=== PATIENT | male | born 1980 | race Caucasian/White ===

== ENCOUNTER 2017-01-04 10:27 | Emergency (ER) | payer OTHER ==
[~2017-01-04] VITALS: Ht 185.4 cm; Wt 125.3 kg
[~2017-01-04 10:27] MED LIST: ALBU1AER9 INH; CYCL10TA6 PO; DRGTP12; FELO5TAB PO; HYDR-3714 PO; LISI-788 PO; OMEP20CA9 PO; PRZ/40 PO
[2017-01-04 10:28] VITALS: TEMP 36.5; Ht 185.4 cm; Wt 125.3 kg
[2017-01-04] MEDS ORDERED: FENTANYL CITRATE INJ 50 MCG/1 ML 2 ML VIAL IV STA ×2 (10:45→11:59)
[2017-01-04] MEDS ORDERED: ONDANSETRON INJ 2 MG/ML 2 ML VIAL IV STA (10:45)
[2017-01-04 11:10] LABS: BASO % 0.5 %; BASO ABS # 0.06 K/uL (0-0.2); COMPLETE YES; EOS % 1.6 %; HEMATOCRIT 49.5 % (42-52); IG% 0.6 %; LYMPH % 18.8 %; LYMPH ABS # 2.44 K/uL (1.2-3.4); MEAN CELL VOLUME 89.5 fL (80-100); MEAN CORPUSCULAR HEMOGLOBIN 31.8 pg (25-34); MEAN CORPUSCULAR HGB CONC 35.6 g/dl (32-36); MEAN PLATELET VOLUME 10.8 fL (7.4-10.4); MONO % 6.2 %; NEUT % 72.3 %; PLATELET COUNT 211 K/uL (130-400); RED BLOOD COUNT 5.53 M/uL (4.7-6.1); WHITE BLOOD COUNT 12.98 K/uL (4.8-10.8)
[2017-01-04 11:24] LABS: BUN/CREATININE RATIO 14.3 (10-20); CALCIUM 9.4 mg/dl (8.5-10.1); CREATININE 0.9 mg/dl (0.60-1.40); POTASSIUM 3.7 mmol/L (3.5-5.1)
--- NOTE | 2017-01-04 11:29 | DIAGNOSTIC IMAGING REPORT ---
CT SCAN OF THE BRAIN WITHOUT IV CONTRAST CLINICAL HISTORY: Headache. Vomiting. Blurry vision. COMPARISON STUDY: CT of the brain dated 01/20/2015. TECHNIQUE: Unenhanced axial CT scan of the brain is performed from the vertex to the skull base. Automated dose control exposure was utilized. CT DOSE: 614.27 mGy.cm FINDINGS: Brain parenchyma: A posterior fossa shunt catheter is unchanged in position. The brain parenchyma is normal in appearance. There is no hemorrhage, mass effect, or evidence of acute territorial ischemia by CT criteria. Reyez-white matter is preserved. No extra-axial fluid collection is seen. Ventricles, sulci, cisterns: Normal in configuration. Intracranial vasculature: The visualized intracranial vasculature at the skull base is normal in appearance. Calvarium: There is evidence of suboccipital craniectomy. A high right parietal amber hole is noted. No destructive calvarial lesion is seen. Sinuses and mastoids: The visualized paranasal sinuses are clear. The mastoid air cells are well pneumatized. Orbits: The bony orbits are grossly intact. IMPRESSION: 1. There is no hemorrhage, mass effect, or evidence of acute territorial ischemia by CT criteria. 2. A posterior fossa shunt catheter is unchanged in position. Ventricular caliber is normal and unchanged. Electronically signed by: Robbin Hennessy M.D. 01/04/2017 11:27 AM Dictated Date/Time: 01/04/2017 11:24 AM
--- NOTE | 2017-01-04 11:55 | DIAGNOSTIC IMAGING REPORT ---
ABDOMEN 2 VIEWS CLINICAL HISTORY: Assess shunt catheter. FINDINGS: Supine and decubitus abdominal radiographs are compared to study dated 12/13/2015. There is a nonobstructed abdominal bowel gas pattern. A ventriculoperitoneal shunt catheter is unchanged in position and coiled in the pelvis from a right-sided approach. The catheter appears intact. Moderate colonic fecal retention is observed. No evidence of intraperitoneal free air is seen. A 1.3 cm nonobstructing right renal calculus is similar to previous. The lumbosacral spine and bony pelvis appear intact. IMPRESSION: 1. Nonobstructed abdominal bowel gas pattern noting moderate constipation. 2. A ventriculoperitoneal shunt catheter is unchanged in position. Visualized portions of the catheter appear intact. 3. Nonobstructing right renal calculus. Electronically signed by: Robbin Hennessy M.D. 01/04/2017 11:53 AM Dictated Date/Time: 01/04/2017 11:51 AM
--- NOTE | 2017-01-04 11:56 | DIAGNOSTIC IMAGING REPORT ---
CERVICAL SPINE 2 VIEWS CLINICAL HISTORY: Ventricular shunt assessment. FINDINGS: AP and lateral views of the cervical spine are compared to study dated 12/21/2014. The cervical spine is intact as visualized. There is straightening of the cervical lordosis. Anterior osteophytes are noted. A ventricular shunt catheter in the posterior fossa is identified. The imaged portions of the catheter appear intact. The visualized apical lung parenchyma appears clear. IMPRESSION: 1. The imaged portions of the ventricular shunt catheter appear intact. 2. The cervical spine is normal as visualized. Electronically signed by: Robbin Hennessy M.D. 01/04/2017 11:55 AM Dictated Date/Time: 01/04/2017 11:53 AM
--- NOTE | 2017-01-04 11:57 | DIAGNOSTIC IMAGING REPORT ---
TWO VIEW CHEST CLINICAL HISTORY: Assessment ventriculoperitoneal shunt. FINDINGS: PA and lateral chest radiographs are compared to study dated 12/13/2015. The heart is top normal for projection. Pulmonary vascular structures noncongested. Nonspecific interstitial thickening is similar to previous. No airspace consolidation or pleural effusion is identified. There is no pneumothorax. The bony thorax appears intact. A ventriculoperitoneal shunt catheter traverses the right chest. The imaged portions of the catheter appear intact. IMPRESSION: 1. No active disease in the chest. 2. The visualized portions of the ventriculoperitoneal shunt catheter appear intact. Electronically signed by: Robbin Hennessy M.D. 01/04/2017 11:56 AM Dictated Date/Time: 01/04/2017 11:55 AM
[2017-01-04] MEDS ORDERED: LISINOPRIL/HCTZ 20/25MG TAB PO STA (11:59)
--- NOTE | 2017-01-04 12:00 | DIAGNOSTIC IMAGING REPORT ---
SKULL 2 VIEWS CLINICAL HISTORY: A ventriculoperitoneal shunt assessment. FINDINGS: AP and lateral calvarial radiographs are compared to study dated 12/21/[address] of the brain performed the same day 01/04/2017. A ventricular shunt catheter is again seen in the posterior fossa. The imaged portions of the catheter appear intact and are unchanged from 12/21/2014. A right parietal amber hole is noted. The calvarium is otherwise intact. The visual paranasal sinuses appear clear. IMPRESSION: Imaged portions of the ventricular shunt appear intact. Electronically signed by: Robbin Hennessy M.D. 01/04/2017 11:59 AM Dictated Date/Time: 01/04/2017 11:56 AM
[2017-01-04] MEDS ORDERED: PENI500T2 PO (12:27)
[2017-01-04] MEDS ORDERED: PENICILLIN V POTASSIUM 250 MG TAB PO ONE (12:30)
[2017-01-04] MEDS ORDERED: VNTHFA/IN INH (12:33)
[2017-01-04 12:39] VITALS: BP 200/132; PULSE 78; O2SAT 97
--- NOTE | 2017-01-04 13:32 | EMERGENCY ROOM VISIT NOTE ---
History Report prepared by Edenilson: Connie Orozco Under the Supervision of: Dr. Rusty Aguayo M.D. First contact with patient: 10:34 Chief Complaint: HEAD PAIN Stated Complaint: PAIN IN HEAD AND MOUTH History of Present Illness The patient is a 36 year old male who presents to the Emergency Room with complaints of worsening jaw pain beginning a few days prior to arrival. The patient states that he is experiencing pain to his left upper and lower teeth. He notes the pain has significantly worsened last night and this morning. He was seen in the ED last year for similar symptoms. 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 He states that the headache is unchanged from how it usually presents. This morning the patient took his blood pressure medication and the proceed to have an episode of vomiting. He believes he threw up his blood pressure medicine. The patient is also experiencing blurred vision in his left eye. The patient denies recent abdominal pain, fevers, chest pain, diarrhea, trouble breathing, difficulty ambulating, slurred words, numbness or weakness to one side of the body. 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 Review of Systems See HPI for pertinent positives & negatives. A total of 10 systems reviewed and were otherwise negative. Past Medical & Surgical Medical Problems: (1) Arachnoid cyst (2) ASTHMA, UNSPECIFIED (3) BIPOLAR DISORDER, UNSPECIFIED (4) Hypertension (5) Ventriculoperitoneal shunt Family History Cancer Diabetes mellitus FH: gallbladder disease FH: heart disease Hypertension Kidney disease Kidney stones Social History Smoking Status: Current Every Day Smoker Alcohol Use: occasionally Drug Use: none Marital Status: single Housing Status: lives with family Occupation Status: disabled Current/Historical Medications Scheduled Albuterol Hfa (Ventolin Hfa), 2 PUFFS INH Q6H Cyclobenzaprine Hcl (Flexeril), 10 MG PO HS Felodipine (Plendil Er), 5 MG PO DAILY Fluoxetine Hcl (Prozac), 40 MG PO DAILY Lisinopril/Hctz (Zestoretic 20MG/25MG), 1 TAB PO DAILY Omeprazole (Prilosec), 20 MG PO BID Penicillin V Potassium (Veetids), 500 MG PO TID Scheduled PRN Hydrocodon/Acetaminophen 7.5MG/300MG (Vicodin Es (7.5MG/300MG)), 1 TAB PO for Pain Allergies Coded Allergies: BEE STING (Verified Allergy, Severe, THROAT SWELLS, 01/04/17) Morphine (Verified Allergy, Unknown, ., 01/04/17) Hydromorphone (Verified Adverse Reaction, Intermediate, SEVERE HEADACHE, ) Tramadol (Verified Adverse Reaction, Intermediate, hives,throat swelling, 01/04/17) HE GETS HIVES Physical Exam Vital Signs Date Time Temp Pulse Resp B/P (MAP) Pulse Ox O2 Delivery O2 Flow Rate FiO2 01/04/17 12:39 78 20 200/132 97 01/04/17 11:50 98 20 200/143 96 Room Air 01/04/17 10:28 36.5 105 18 207/139 100 Room Air Physical Exam Constitutional: Vital signs reviewed. Eyes: Pupils are equal round reactive to light. Conjunctiva are noninjected. ENT: No facial swelling; multiple carries with percussion tenderness to left maxillary and mandibular molars with no gingival swelling. Pharynx is clear without erythema or exudate. Mucous membranes are moist. Neck supple without meningeal signs. Respiratory: Clear to auscultation bilaterally. Breath sounds are equal bilaterally. Cardiovascular: Regular rate and rhythm. No rubs or gallops. GI: Soft, nondistended and nontender. Bowel sounds are present. Musculoskeletal: No peripheral edema. No lower extremity tenderness. Integumentary: No cyanosis. Neurological: The patient is awake and alert. Cranial nerves II-XII are intact. Motor is 5 out of 5 all extremities. Sensation is intact to light touch all extremities. Normal speech. No pronator drift. Psychiatric: Normal affect. Medical Decision & Procedures ER Provider Diagnostic Interpretation: Radiology results as stated below per my review and the radiologist's interpretation: CT SCAN OF THE BRAIN WITHOUT IV CONTRAST CLINICAL HISTORY: Headache. Vomiting. Blurry vision. COMPARISON STUDY: CT of the brain dated 01/20/2015. TECHNIQUE: Unenhanced axial CT scan of the brain is performed from the vertex to the skull base. Automated dose control exposure was utilized. CT DOSE: 614.27 mGy.cm FINDINGS: Brain parenchyma: A posterior fossa shunt catheter is unchanged in position. The brain parenchyma is normal in appearance. There is no hemorrhage, mass effect, or evidence of acute territorial ischemia by CT criteria. Reyez-white matter is preserved. No extra-axial fluid collection is seen. Ventricles, sulci, cisterns: Normal in configuration. Intracranial vasculature: The visualized intracranial vasculature at the skull base is normal in appearance. Calvarium: There is evidence of suboccipital craniectomy. A high right parietal amber hole is noted. No destructive calvarial lesion is seen. Sinuses and mastoids: The visualized paranasal sinuses are clear. The mastoid air cells are well pneumatized. Orbits: The bony orbits are grossly intact. IMPRESSION: 1. There is no hemorrhage, mass effect, or evidence of acute territorial ischemia by CT criteria. 2. A posterior fossa shunt catheter is unchanged in position. Ventricular caliber is normal and unchanged. Electronically signed by: Robbin Hennessy M.D. 01/04/2017 11:27 AM Dictated Date/Time: 01/04/2017 11:24 AM TWO VIEW CHEST CLINICAL HISTORY: Assessment ventriculoperitoneal shunt. FINDINGS: PA and lateral chest radiographs are compared to study dated 12/13/2015. The heart is top normal for projection. Pulmonary vascular structures noncongested. Nonspecific interstitial thickening is similar to previous. No airspace consolidation or pleural effusion is identified. There is no pneumothorax. The bony thorax appears intact. A ventriculoperitoneal shunt catheter traverses the right chest. The imaged portions of the catheter appear intact. IMPRESSION: 1. No active disease in the chest. 2. The visualized portions of the ventriculoperitoneal shunt catheter appear intact. Electronically signed by: Robbin Hennessy M.D. 01/04/2017 11:56 AM Dictated Date/Time: 01/04/2017 11:55 AM CERVICAL SPINE 2 VIEWS CLINICAL HISTORY: Ventricular shunt assessment. FINDINGS: AP and lateral views of the cervical spine are compared to study dated 12/21/2014. The cervical spine is intact as visualized. There is straightening of the cervical lordosis. Anterior osteophytes are noted. A ventricular shunt catheter in the posterior fossa is identified. The imaged portions of the catheter appear intact. The visualized apical lung parenchyma appears clear. IMPRESSION: 1. The imaged portions of the ventricular shunt catheter appear intact. 2. The cervical spine is normal as visualized. Electronically signed by: Robbin Hennessy M.D. 01/04/2017 11:55 AM Dictated Date/Time: 01/04/2017 11:53 AM ABDOMEN 2 VIEWS CLINICAL HISTORY: Assess shunt catheter. FINDINGS: Supine and decubitus abdominal radiographs are compared to study dated 12/13/2015. There is a nonobstructed abdominal bowel gas pattern. A ventriculoperitoneal shunt catheter is unchanged in position and coiled in the pelvis from a right-sided approach. The catheter appears intact. Moderate colonic fecal retention is observed. No evidence of intraperitoneal free air is seen. A 1.3 cm nonobstructing right renal calculus is similar to previous. The lumbosacral spine and bony pelvis appear intact. IMPRESSION: 1. Nonobstructed abdominal bowel gas pattern noting moderate constipation. 2. A ventriculoperitoneal shunt catheter is unchanged in position. Visualized portions of the catheter appear intact. 3. Nonobstructing right renal calculus. Electronically signed by: Robbin Hennessy M.D. 01/04/2017 11:53 AM Dictated Date/Time: 01/04/2017 11:51 AM SKULL 2 VIEWS CLINICAL HISTORY: A ventriculoperitoneal shunt assessment. FINDINGS: AP and lateral calvarial radiographs are compared to study dated 12/21/[address] of the brain performed the same day 01/04/2017. A ventricular shunt catheter is again seen in the posterior fossa. The imaged portions of the catheter appear intact and are unchanged from 12/21/2014. A right parietal amber hole is noted. The calvarium is otherwise intact. The visual paranasal sinuses appear clear. IMPRESSION: Imaged portions of the ventricular shunt appear intact. Electronically signed by: Robbin Hennessy M.D. 01/04/2017 11:59 AM Dictated Date/Time: 01/04/2017 11:56 AM Laboratory Results 01/04/17 11:00 Red Blood Count 5.53, Mean Corpuscular Volume 89.5, Mean Corpuscular Hemoglobin 31.8, Mean Corpuscular Hemoglobin Concent 35.6, Mean Platelet Volume 10.8, Neutrophils (%) (Auto) 72.3, Lymphocytes (%) (Auto) 18.8, Monocytes (%) (Auto) 6.2, Eosinophils (%) (Auto) 1.6, Basophils (%) (Auto) 0.5, Neutrophils # (Auto) 9.39, Lymphocytes # (Auto) 2.44, Monocytes # (Auto) 0.80, Eosinophils # (Auto) 0.21, Basophils # (Auto) 0.06 01/04/17 11:00 Test 01/04/17 11:00 White Blood Count 12.98 K/uL (4.8-10.8) Red Blood Count 5.53 M/uL (4.7-6.1) Hemoglobin 17.6 g/dL (14.0-18.0) Hematocrit 49.5 % (42-52) Mean Corpuscular Volume 89.5 fL (80-100) Mean Corpuscular Hemoglobin 31.8 pg (25-34) Mean Corpuscular Hemoglobin Concent 35.6 g/dl (32-36) Platelet Count 211 K/uL (130-400) Mean Platelet Volume 10.8 fL (7.4-10.4) Neutrophils (%) (Auto) 72.3 % Lymphocytes (%) (Auto) 18.8 % Monocytes (%) (Auto) 6.2 % Eosinophils (%) (Auto) 1.6 % Basophils (%) (Auto) 0.5 % Neutrophils # (Auto) 9.39 K/uL (1.4-6.5) Lymphocytes # (Auto) 2.44 K/uL (1.2-3.4) Monocytes # (Auto) 0.80 K/uL (0.11-0.59) Eosinophils # (Auto) 0.21 K/uL (0-0.5) Basophils # (Auto) 0.06 K/uL (0-0.2) RDW Standard Deviation 43.2 fL (36.4-46.3) RDW Coefficient of Variation 13.2 % (11.5-14.5) Immature Granulocyte % (Auto) 0.6 % Immature Granulocyte # (Auto) 0.08 K/uL (0.00-0.02) Anion Gap 9.0 mmol/L (3-11) Est Creatinine Clear Calc Drug Dose 158.9 ml/min Estimated GFR () 127.8 Estimated GFR (Non- 110.3 BUN/Creatinine Ratio 14.3 (10-20) Calcium Level 9.4 mg/dl (8.5-10.1) Laboratory results as reviewed by me. Medications Administered Medications (Trade) Dose Ordered Sig/Adam Route Start Time Stop Time Status Last Admin Dose Admin Ondansetron HCl (Zofran Inj) 4 mg NOW STAT IV 01/04/17 10:45 01/04/17 10:48 DC 01/04/17 11:04 4 MG Fentanyl Citrate (Fentanyl Inj) 50 mcg NOW STAT IV 01/04/17 10:45 01/04/17 10:48 DC 01/04/17 11:04 50 MCG HCTZ/Lisinopril (Prinzide 20-25MG Tab) 1 tab ONE STAT PO 01/04/17 11:59 01/04/17 12:00 DC 01/04/17 12:12 1 TAB Fentanyl Citrate (Fentanyl Inj) 50 mcg NOW STAT IV 01/04/17 11:59 01/04/17 12:00 DC 01/04/17 12:10 50 MCG Penicillin V Potassium (Veetids Tab) 500 mg NOW ONCE PO 01/04/17 12:30 01/04/17 12:31 DC 01/04/17 12:33 500 MG ED Course 1038: The patient was evaluated in room C6. A complete history and physical exam was performed. 1045: Fentanyl Inj 50 mcg IV, Zofran Inj 4 mg IV. 1159: Fentanyl Inj 50 mcg IV, Prinzide 20-25 MG Tab 1 tab PO. 1225: I reevaluated the patient and he is feeling better, 1230: Upon reevaluation, the patient appeared to have improvement of his symptoms. I discussed tonight's findings with him. He verbalized agreement of the treatment plan. He was discharged home. Medical Decision this is a 36-year-old male who presents with dental pain and headache with vomiting. Differential diagnosis includes caries, periapical abscess, chronic headache syndrome, and cranial mass, [employer]NAGER shunt malfunction, intracranial hemorrhage. I did perform a limited focused review of portions of the patient' s old chart on the electronic medical record. The patient was seen by myself on December 13, 2015 for dental pain. He was discharged with Oxycodone and Penicillin. Medication Reconciliation: I attest that I have personally reviewed the patient' s current medication list. Blood Pressure Screening: Patient was found to have an elevated blood pressure and was referred to their primary doctor for recheck and further treatment. His blood pressure was significantly elevated but he stated that he threw up his blood pressure medicine. I did give him a dose of Zestoretic which she takes at home. I did evaluate the patient as noted above. He is presenting with dental pain for the past few days. He states this is the main reason he came here. He also notes that he has chronic headaches and that his headache today is unchanged from his prior headaches. He is neurologically intact. He does state , however, that he did throw up and had some blurring of his vision on the left eye. His visual acuity here is unremarkable and he has no visual loss. His dental pain appears to be related to poor dentition and I did recommend treatment by a dentist. He did have some mild percussion tenderness and so I did feel antibiotic treatment was indicated. IV access was established. I did treat patient with 2 doses of IV fentanyl. He was also given Zofran IV. I did order and personally review the patient's shunt series x-rays as described above. There is no evidence of acute abnormality to his shunt. I did order and review the patient's blood work as noted in the electronic medical record. White count is slightly elevated which is a nonspecific finding. I did order a CT of the head. I did review the images myself as well as the radiology report as described above. There is no acute abnormality on CT. I did reassess the patient. He is feeling much better. I did recommend he follow with his regular doctor as well as his dentist. He was given penicillin here and discharged with a prescription for penicillin. He was given return instructions as outlined below. [place] Drug Monitoring Program Search Results: patient reviewed within database Drug Monitoring Findings: The patient gets Hydrocodone regularly and was last filled December 26 for 40 tablets. 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 I confirm that the note above accurately reflects all work, treatment, procedures, and medical decision making performed by me. Departure Information Dispostion Home / Self-Care Prescriptions Penicillin V Potassium (VEETIDS) 500 Mg Tab 500 MG PO TID, #30 TAB Prov: Rusty Aguayo M.D. 01/04/17 Referrals No Doctor, Assigned (PCP) Forms HOME CARE DOCUMENTATION FORM, IMPORTANT VISIT INFORMATION, WORK / SCHOOL INSTRUCTIONS Patient Instructions Headache Pain, My [facility], Toothache - [facility] Additional Instructions You have been examined and treated today on an emergency basis only. This is not a substitute for, or an effort to provide, complete comprehensive medical care. It is impossible to recognize and treat all injuries or illnesses in a single emergency department visit. It is therefore important that you follow up closely with your physician and dentist. Call as soon as possible for an appointment. Return for worsening symptoms or if you develop fever, numbness or weakness on one side of your body, difficulties with your speech or walking, or any other concerning symptoms. Problem Qualifiers Primary Impression: Chronic headache Headache type: unspecified Intractability: not intractable Qualified Codes : R51 - Headache
== END 2017-01-04 12:42 | disposition home or self-care (01) ==
LOC: C.EDB 10:29 → C.EDC 12:42
DX: R51 Headache (principal); K08.89 Other specified disorders of teeth and supporting structures; I10 Essential (primary) hypertension; Z98.2 Presence of cerebrospinal fluid drainage device; G93.0 Cerebral cysts; F31.9 Bipolar disorder, unspecified; F17.210 Nicotine dependence, cigarettes, uncomplicated

== ENCOUNTER 2017-05-08 16:20 | Emergency (ER) | payer OTHER ==
[~2017-05-08] VITALS: Ht 185.4 cm; Wt 120.5 kg
[2017-05-08 16:20] VITALS: TEMP 36.7; Ht 185.4 cm; Wt 120.5 kg
[~2017-05-08 16:20] MED LIST changes: -ALBU1AER9 INH; -DRGTP12; +VNTHFA/IN INH
[2017-05-08] MEDS ORDERED: KETOROLAC TROMETHAMINE 30 MG/ML VIAL IV STA (16:57)
[2017-05-08] MEDS ORDERED: SODIUM CHLORIDE 0.9% 1000ML 1,000 ML IV STA (16:57)
[2017-05-08] MEDS ORDERED: MAGNESIUM SULFATE 1GM / D5W 1 GM BAG IV STA (16:57)
[2017-05-08] MEDS ORDERED: DiphenhydrAMINE HCL 50 MG/ML VIAL IV STA (16:57)
[2017-05-08] MEDS ORDERED: PROCHLORPERAZINE 5 MG/ML 2 ML VIAL IV STA (16:57)
--- NOTE | 2017-05-08 17:10 | EMERGENCY ROOM VISIT NOTE ---
History Report prepared by Edenilson: Dionne Flores Under the Supervision of: Dr. Tim Li M.D. First contact with patient: 16:52 Chief Complaint: VOMITING Stated Complaint: VOMITING, BURNING FROM HEAD TO LEGS History of Present Illness The patient is a 36 year old male who presents to the Emergency Room with complaints of persistent LLQ abdominal pain starting 2 days ago. He also complaints of nausea, vomiting, and diarrhea for the past 2 days. He also has a left sided headache. He has a history of shunt. He has had headaches like this in the past that are similar. He has not taken anything for the pain. He denies any neck pain. Source of History: patient Onset: 2 days ago Position: abdomen (LLQ) Quality: other (pain) Timing: other (persistent) Associated Symptoms: + headache, + nausea, + vomiting, + diarrhea, No neck pain Review of Systems See HPI for pertinent positives & negatives. A total of 10 systems reviewed and were otherwise negative. Past Medical & Surgical Medical Problems: (1) Arachnoid cyst (2) ASTHMA, UNSPECIFIED (3) BIPOLAR DISORDER, UNSPECIFIED (4) Hypertension (5) Ventriculoperitoneal shunt Family History Cancer Diabetes mellitus FH: gallbladder disease FH: heart disease Hypertension Kidney disease Kidney stones Social History Smoking Status: Current Every Day Smoker Alcohol Use: occasionally Drug Use: none Marital Status: single Housing Status: lives with family Occupation Status: disabled Current/Historical Medications Scheduled Albuterol Hfa (Ventolin Hfa), 2 PUFFS INH Q6H Felodipine (Plendil Er), 5 MG PO DAILY Fluoxetine Hcl (Prozac), 40 MG PO DAILY Lisinopril/Hctz (Zestoretic 20MG/25MG), 1 TAB PO DAILY Omeprazole (Prilosec), 20 MG PO BID Ondasetron Odt (Zofran Odt), 4 MG SL Q6H Scheduled PRN Hydrocodon/Acetaminophen 7.5MG/300MG (Vicodin Es (7.5MG/300MG)), 1 TAB PO for Pain Allergies Coded Allergies: BEE STING (Verified Allergy, Severe, THROAT SWELLS, 05/08/17) Morphine (Verified Allergy, Unknown, ., 05/08/17) Hydromorphone (Verified Adverse Reaction, Intermediate, SEVERE HEADACHE, 05/08/17) Tramadol (Verified Adverse Reaction, Intermediate, hives,throat swelling, 05/08/17) HE GETS HIVES Physical Exam Vital Signs Date Time Temp Pulse Resp B/P (MAP) Pulse Ox O2 Delivery O2 Flow Rate FiO2 05/08/17 20:07 102 16 203/142 98 05/08/17 19:26 101 20 210/158 97 Room Air 05/08/17 18:40 112 216/145 98 05/08/17 18:27 102 217/145 05/08/17 17:50 107 18 98 05/08/17 17:20 102 16 98 05/08/17 17:17 103 05/08/17 17:10 198/138 05/08/17 16:20 36.7 109 17 204/152 99 Room Air Physical Exam GENERAL: Patient is a healthy-appearing well-nourished male HEAD: Normocephalic atraumatic EYES: Ocular movements intact pupils equal and react to light OROPHARYNX mucous membranes are moist no exudates present no erythema or edema present NECK: Supple no nuchal rigidity CHEST: Good equal expansion LUNGS: Clear and equal to auscultation CARDIAC: Normal S1 and S2 ABDOMEN: Soft tenderness in the LLQ no guarding BACK: No CVA tenderness EXTREMITIES: No pain upon palpation normal muscle strength in all groups no clubbing cyanosis or edema NEURO: Patient is following commands and answering questions appropriately. Alert and oriented x3 Cranial Nerves 2-12 grossly intact Medical Decision & Procedures ER Provider Diagnostic Interpretation: Radiology results as stated below per my review and radiologist interpretation: CT ABD/PELVIS IV CONTRAST ONLY CLINICAL HISTORY: Left lower quadrant abdominal pain COMPARISON STUDY: 12/21/2014 TECHNIQUE: Following the IV administration of 117 mL of Optiray-320, CT scan of the abdomen and pelvis was performed from the lung bases to the proximal femurs. Images are reviewed in the axial, sagittal, and coronal planes. IV contrast was administered without complication. A dose lowering technique was utilized adhering to the principles of ALARA. CT DOSE: FINDINGS: Lower chest: There are mild dependent atelectatic changes Liver: The contrast-enhanced liver is normal in size, contour, and attenuation. There is no intrahepatic biliary ductal dilatation. The hepatic veins and portal veins are patent. Gallbladder: Cholelithiasis Spleen: Normal in size and attenuation. Pancreas: Unremarkable. Adrenal glands: Unremarkable. Kidneys: There are nonobstructing lower pole right renal calculi, the largest of which measures 1 cm. Bowel: There are no transition zones indicate bowel obstruction. There is a peritoneal catheter present. There is no acute diverticulitis. The appendix is normal. Peritoneum: There is no intraperitoneal free air or abdominal ascites. Vasculature: The abdominal aorta is normal in course and caliber. Adenopathy: None. Pelvic viscera: The bladder, and pelvic viscera are unremarkable. Skeletal structures: No destructive osseous lesions are seen. IMPRESSION: 1. Cholelithiasis 2. Nonobstructing right renal calculi 3. No ureteral or bladder calculi identified 4. No evidence of bowel obstruction. No evidence of free air 5. Normal appendix. No evidence of acute diverticulitis 6. A ventriculoperitoneal shunt catheter is visualized. The tip is positioned within the pelvis. Electronically signed by: Elbert Prater M.D. 05/08/2017 6:28 PM Dictated Date/Time: 05/08/2017 6:24 PM HEAD WITHOUT CONTRAST (CT) CLINICAL HISTORY: 36 years-old Male with Pt c/o headache, hx of shunt. Acute headache with history of shunt. TECHNIQUE: Multiple axial CT images of the head were obtained without contrast. A dose lowering technique was utilized adhering to the principles of ALARA. CT DOSE: 2562.32 mGy.cm COMPARISON: Head CT 01/04/2017. FINDINGS: No acute intracranial hemorrhage, midline shift, mass, large territorial ischemia or abnormal extra-axial collection. Posterior fossa shunt catheter is unchanged in positioning. No hydrocephalus. Increased attenuation of the vessels is compatible with recent contrast-enhanced study. The calvarium is intact with evidence of prior suboccipital craniotomy. The paranasal sinuses, mastoid air cells, and middle ear cavities are clear. IMPRESSION: 1. No acute intracranial abnormality. 2. Posterior fossa shunt catheter appears stable. No hydrocephalus. The above report was generated using voice recognition software. It may contain grammatical, syntax or spelling errors. Electronically signed by: Luis Alberto Merrill M.D. 05/08/2017 6:25 PM Dictated Date/Time: 05/08/2017 6:22 PM Laboratory Results 05/08/17 17:04 Red Blood Count 5.65, Mean Corpuscular Volume 87.3, Mean Corpuscular Hemoglobin 30.4, Mean Corpuscular Hemoglobin Concent 34.9, Mean Platelet Volume 11.0, Neutrophils (%) (Auto) 71.6, Lymphocytes (%) (Auto) 19.5, Monocytes (%) (Auto) 7.8, Eosinophils (%) (Auto) 0.4, Basophils (%) (Auto) 0.4, Neutrophils # (Auto) 9.66, Lymphocytes # (Auto) 2.63, Monocytes # (Auto) 1.05, Eosinophils # (Auto) 0.05, Basophils # (Auto) 0.05 05/08/17 17:04 Test 05/08/17 17:04 05/08/17 17:14 05/08/17 17:43 05/08/17 18:55 White Blood Count 13.48 K/uL (4.8-10.8) Red Blood Count 5.65 M/uL (4.7-6.1) Hemoglobin 17.2 g/dL (14.0-18.0) Hematocrit 49.3 % (42-52) Mean Corpuscular Volume 87.3 fL (80-100) Mean Corpuscular Hemoglobin 30.4 pg (25-34) Mean Corpuscular Hemoglobin Concent 34.9 g/dl (32-36) Platelet Count 227 K/uL (130-400) Mean Platelet Volume 11.0 fL (7.4-10.4) Neutrophils (%) (Auto) 71.6 % Lymphocytes (%) (Auto) 19.5 % Monocytes (%) (Auto) 7.8 % Eosinophils (%) (Auto) 0.4 % Basophils (%) (Auto) 0.4 % Neutrophils # (Auto) 9.66 K/uL (1.4-6.5) Lymphocytes # (Auto) 2.63 K/uL (1.2-3.4) Monocytes # (Auto) 1.05 K/uL (0.11-0.59) Eosinophils # (Auto) 0.05 K/uL (0-0.5) Basophils # (Auto) 0.05 K/uL (0-0.2) RDW Standard Deviation 41.3 fL (36.4-46.3) RDW Coefficient of Variation 13.1 % (11.5-14.5) Immature Granulocyte % (Auto) 0.3 % Immature Granulocyte # (Auto) 0.04 K/uL (0.00-0.02) Est Creatinine Clear Calc Drug Dose 149.1 ml/min Estimated GFR () 121.3 Estimated GFR (Non- 104.6 BUN/Creatinine Ratio 13.6 (10-20) Calcium Level 9.9 mg/dl (8.5-10.1) Total Bilirubin 0.7 mg/dl (0.2-1) Direct Bilirubin 0.1 mg/dl (0-0.2) Aspartate Amino Transf (AST/SGOT) 8 U/L (15-37) Alanine Aminotransferase (ALT/SGPT) 35 U/L (12-78) Alkaline Phosphatase 71 U/L (45-117) Total Protein 8.1 gm/dl (6.4-8.2) Albumin 4.2 gm/dl (3.4-5.0) Lipase 159 U/L (73-393) Bedside Lactic Acid Venous 1.27 mmol/L (0.90-1.70) Bedside Hemoglobin 17.0 g/dl (14.0-18.0) Bedside Hematocrit 50 % (42-52) Bedside Sodium 141 mEq/L (135-144) Bedside Potassium 3.3 mEq/L (3.3-5.0) Bedside Chloride 104 mEq/L (101-112) Bedside Total CO2 24 mEq/l (24-31) Anion Gap 17.0 mmol/L (16-25) Bedside Blood Urea Nitrogen 13 mg/dl (7-18) Bedside Creatinine 1.0 mg/dl (0.6-1.3) Bedside Glucose (other) 104 mg/dl (70-99) Bedside Ionized Calcium (Carlos) 1.17 mmol/l (1.12-1.32) Urine Color YELLOW Urine Appearance CLEAR (CLEAR) Urine pH 7.5 (4.5-7.5) Urine Specific [place] 1.035 (1.000-1.030) Urine Protein NEG (NEG) Urine Glucose (UA) NEG (NEG) Urine Ketones NEG (NEG) Urine Occult Blood NEG (NEG) Urine Nitrite NEG (NEG) Urine Bilirubin NEG (NEG) Urine Urobilinogen NEG (NEG) Urine Leukocyte Esterase NEG (NEG) Labs reviewed by ED physician. Medications Administered Medications (Trade) Dose Ordered Sig/Adam Route Start Time Stop Time Status Last Admin Dose Admin Sodium Chloride 1,000 ml @ 999 mls/hr Q1H1M STAT IV 05/08/17 16:57 05/08/17 17:57 DC 05/08/17 17:26 999 MLS/HR Prochlorperazine Edisylate (Compazine Inj) 10 mg NOW STAT IV 05/08/17 16:57 05/08/17 16:59 DC 05/08/17 17:26 10 MG Diphenhydramine HCl (Benadryl Inj) 50 mg NOW STAT IV 05/08/17 16:57 05/08/17 16:59 DC 05/08/17 17:26 50 MG Ketorolac Tromethamine (Toradol Inj) 30 mg NOW STAT IV 05/08/17 16:57 05/08/17 16:59 DC 05/08/17 17:26 30 MG Magnesium Sulfate (Magnesium Sulfate) 1 gm NOW STAT IV 05/08/17 16:57 05/08/17 16:59 DC 05/08/17 17:52 1 GM Potassium Chloride (Klor-Con M10) 40 meq NOW STAT PO 05/08/17 18:01 05/08/17 18:02 DC 05/08/17 18:51 40 MEQ Dexamethasone Sodium Phosphate (Decadron Inj) 10 mg NOW ONCE IV 05/08/17 19:00 05/08/17 19:01 DC 05/08/17 19:16 10 MG Valproate Sodium 500 mg/Dextrose 55 ml @ 55 mls/hr NOW STAT IV 05/08/17 18:56 05/08/17 19:55 DC 05/08/17 19:16 55 MLS/HR HCTZ/Lisinopril (Prinzide 20-25MG Tab) 1 tab NOW STAT PO 05/08/17 19:09 05/08/17 19:10 DC 05/08/17 19:09 1 TAB ED Course 1650: Past medical records reviewed. The patient was evaluated in room C5. A complete history and physical examination was performed. 1657: Magnesium Sulfate 1 gm IV, Toradol Inj 30 mg IV, Benadryl Inj 50 mg IV, Compazine Inj 10 mg IV, NSS 1000 ml @ 999 mls/hr IV. 180: Potassium Chloride 40 meq PO. 182: I reevaluated the patient. 1856: Valproate Sodium 500 mg/Dextrose 55 ml @ 55 mls/hr IV. 1900: Decadron Inj 10 mg IV. 190: Lisinopril/HCTZ 1 tab PO. 1943: Upon reexamination the patient is resting comfortably. I discussed results and treatment plan with the patient. He verbalizes agreement and understanding. The patient is ready for discharge. Medical Decision Differential diagnosis: Etiologies such as appendicitis, diverticulitis, PUD, biliary pathology, UTI, pancreatitis, obstruction, mesenteric ischemia, aortic pathology, infections, inflammatory bowel disease, renal colic, as well as others were entertained. This is a 36-year-old male who presents emergency department complaining of nausea vomiting and diarrhea. In addition the patient has a headache to the left side of his head. He has no pain in his neck and has no evidence of meningitis or encephalitis on examination. However based on the patient's complaints as well as the headache and using shared medical decision-making the patient felt he did not need a lumbar puncture or to have the shunt tapped. An IV was established, patient given normal saline bolus, Toradol, Compazine, Benadryl, magnesium. In addition the patient was also given Decadron and valproate. I will note that the patient's blood pressure is elevated he did not take his blood pressure medications today due to the vomiting. He was given Zofran here in emergency department and was able to tolerate by mouth Gatorade as well as his blood pressure medication. I stressed to the patient that he needs to get his blood pressure under control with his primary care physician. In addition I strongly recommended that the patient follow-up with Dr. Michael which his office especially if the headache returns or he develops fevers. Patient was in agreement with the treatment plan. Medication Reconcilliation Current Medication List: was personally reviewed by me Blood Pressure Screening Patient's blood pressure: Elevated blood pressure Blood pressure disposition: Referred to PCP Impression Primary Impression: Hypertension Additional Impression: Gastroenteritis Scribe Attestation The scribe's documentation has been prepared under my direction and personally reviewed by me in its entirety. I confirm that the note above accurately reflects all work, treatment, procedures, and medical decision making performed by me. Departure Information Dispostion Home / Self-Care Prescriptions Ondasetron Odt (ZOFRAN ODT) 4 Mg Tab 4 MG SL Q6H for Nausea, #6 TAB Prov: Tim Li MD 05/08/17 Referrals Jericho Ridley M.D. (PCP) Omer Somers M.D. Forms HOME CARE DOCUMENTATION FORM, IMPORTANT VISIT INFORMATION Patient Instructions ED Gastroenteritis Report Pend, Hypertension Dc, My [facility] Additional Instructions Follow up with Dr Abdi's office You were found to have an elevated blood pressure today (>120 sytolic or >90 diastolic). Per medicare guidelines, you need to follow up with this blood pressure screening with your Primary Care Physician (PCP). For a new PCP call [phone]. You have been examined and treated today on an emergency basis only. This is not a substitute for, or an effort to provide, complete comprehensive medical care. It is impossible to recognize and treat all injuries or illnesses in a single emergency department visit. It is therefore important that you follow up closely with Dr Ridley. Call as soon as possible for an appointment. Thank you for your time and consideration. I look forward to speaking with you again soon. Please don't hesitate to call us if you have any questions. Problem Qualifiers Primary Impression: Hypertension Hypertension type: unspecified Qualified Codes: I10 - Essential (primary) hypertension
[2017-05-08 17:19] LABS: BASO % 0.4 %; BASO ABS # 0.05 K/uL (0-0.2); COMPLETE YES; EOS % 0.4 %; HEMATOCRIT 49.3 % (42-52); IG% 0.3 %; LYMPH % 19.5 %; LYMPH ABS # 2.63 K/uL (1.2-3.4); MEAN CELL VOLUME 87.3 fL (80-100); MEAN CORPUSCULAR HEMOGLOBIN 30.4 pg (25-34); MEAN CORPUSCULAR HGB CONC 34.9 g/dl (32-36); MONO % 7.8 %; NEUT % 71.6 %; PLATELET COUNT 227 K/uL (130-400); RED BLOOD COUNT 5.65 M/uL (4.7-6.1); WHITE BLOOD COUNT 13.48 K/uL (4.8-10.8)
[2017-05-08 17:45] LABS: BUN/CREATININE RATIO 13.6 (10-20); CALCIUM 9.9 mg/dl (8.5-10.1); CREATININE 0.94 mg/dl (0.60-1.40); POTASSIUM 3.2 mmol/L (3.5-5.1)
[2017-05-08] MEDS ORDERED: POTASSIUM CHLORIDE 10 MEQ TABCR PO STA (18:01)
--- NOTE | 2017-05-08 18:26 | DIAGNOSTIC IMAGING REPORT ---
HEAD WITHOUT CONTRAST (CT) CLINICAL HISTORY: 36 years-old Male with Pt c/o headache, hx of shunt. Acute headache with history of shunt. TECHNIQUE: Multiple axial CT images of the head were obtained without contrast. A dose lowering technique was utilized adhering to the principles of ALARA. CT DOSE: 2562.32 mGy.cm COMPARISON: Head CT 01/04/2017. FINDINGS: No acute intracranial hemorrhage, midline shift, mass, large territorial ischemia or abnormal extra-axial collection. Posterior fossa shunt catheter is unchanged in positioning. No hydrocephalus. Increased attenuation of the vessels is compatible with recent contrast-enhanced study. The calvarium is intact with evidence of prior suboccipital craniotomy. The paranasal sinuses, mastoid air cells, and middle ear cavities are clear. IMPRESSION: 1. No acute intracranial abnormality. 2. Posterior fossa shunt catheter appears stable. No hydrocephalus. The above report was generated using voice recognition software. It may contain grammatical, syntax or spelling errors. Electronically signed by: Luis Alberto Merrill M.D. 05/08/2017 6:25 PM Dictated Date/Time: 05/08/2017 6:22 PM
--- NOTE | 2017-05-08 18:29 | DIAGNOSTIC IMAGING REPORT ---
CT ABD/PELVIS IV CONTRAST ONLY CLINICAL HISTORY: Left lower quadrant abdominal pain COMPARISON STUDY: 12/21/2014 TECHNIQUE: Following the IV administration of 117 mL of Optiray-320, CT scan of the abdomen and pelvis was performed from the lung bases to the proximal femurs. Images are reviewed in the axial, sagittal, and coronal planes. IV contrast was administered without complication. A dose lowering technique was utilized adhering to the principles of ALARA. CT DOSE: FINDINGS: Lower chest: There are mild dependent atelectatic changes Liver: The contrast-enhanced liver is normal in size, contour, and attenuation. There is no intrahepatic biliary ductal dilatation. The hepatic veins and portal veins are patent. Gallbladder: Cholelithiasis Spleen: Normal in size and attenuation. Pancreas: Unremarkable. Adrenal glands: Unremarkable. Kidneys: There are nonobstructing lower pole right renal calculi, the largest of which measures 1 cm. Bowel: There are no transition zones indicate bowel obstruction. There is a peritoneal catheter present. There is no acute diverticulitis. The appendix is normal. Peritoneum: There is no intraperitoneal free air or abdominal ascites. Vasculature: The abdominal aorta is normal in course and caliber. Adenopathy: None. Pelvic viscera: The bladder, and pelvic viscera are unremarkable. Skeletal structures: No destructive osseous lesions are seen. IMPRESSION: 1. Cholelithiasis 2. Nonobstructing right renal calculi 3. No ureteral or bladder calculi identified 4. No evidence of bowel obstruction. No evidence of free air 5. Normal appendix. No evidence of acute diverticulitis 6. A ventriculoperitoneal shunt catheter is visualized. The tip is positioned within the pelvis. Electronically signed by: Elbert Prater M.D. 05/08/2017 6:28 PM Dictated Date/Time: 05/08/2017 6:24 PM
[2017-05-08] MEDS ORDERED: OPTIRAY 320 IV PRN (18:30)
[2017-05-08] MEDS ORDERED: VALPROATE SOD IV 500 MG in DEXTROSE 5% 50ML 50 ML IV STA (18:56)
[2017-05-08] MEDS ORDERED: DEXAMETHASONE SOD INJ 10 MG/ML VIAL IV ONE (19:00)
[2017-05-08] MEDS ORDERED: LISINOPRIL/HCTZ 20/25MG TAB PO STA (19:09)
[2017-05-08 19:10] LABS: URINE APPEARANCE CLEAR (CLEAR); URINE BILIRUBIN NEG (NEG); URINE COLOR YELLOW; URINE NITRITE NEG (NEG); URINE PH 7.5 (4.5-7.5); URINE SPECIFIC GRAVITY 1.035 (1.000-1.030); UROBILINOGEN NEG (NEG)
[2017-05-08 19:11] LABS: MANUAL MICROSCOPIC REQUIRED? NO; REVIEW REQ? NO
[2017-05-08] MEDS ORDERED: ONDA4TAB10 SL (19:46)
[2017-05-08 20:02] LABS: ISTAT IONIZED CALCIUM 1.17 mmol/l (1.12-1.32)
[2017-05-08 20:07] VITALS: BP 203/142; PULSE 102; O2SAT 98
== END 2017-05-08 20:08 | disposition home or self-care (01) ==
LOC: C.EDB 16:20 → C.EDC 20:08
DX: I10 Essential (primary) hypertension (principal); K52.9 Noninfective gastroenteritis and colitis, unspecified; J45.909 Unspecified asthma, uncomplicated; G93.0 Cerebral cysts; F31.9 Bipolar disorder, unspecified; Z98.2 Presence of cerebrospinal fluid drainage device; Z80.9 Family history of malignant neoplasm, unspecified; Z83.3 Family history of diabetes mellitus; Z83.79 Family history of other diseases of the digestive system; Z82.49 Family history of ischemic heart disease and other diseases of the circulatory system; Z84.1 Family history of disorders of kidney and ureter; F17.210 Nicotine dependence, cigarettes, uncomplicated; Z79.899 Other long term (current) drug therapy